=== PATIENT | female | born 1965 ===

== ENCOUNTER 2019-10-31 10:04 | Day surgery (SDC) | payer OTHER ==
[2019-10-29 12:08] LABS: Hematocrit 36.4 % (30.3-42.9); Hemoglobin 12.2 gm/dl (10.1-14.3)
--- NOTE | 2019-10-29 12:18 | Anesthesia Consultation ---
Anesthesia Consult and Med Hx Date of service: 10/29/19 - Airway Anesthetic Teeth Evaluation: Good ROM Head & Neck: Adequate Mental/Hyoid Distance: Adequate Mallampati Class: Class II Intubation Access Assessment: Good - Pre-Operative Health Status ASA Pre-Surgery Classification: ASA2 Proposed Anesthetic Plan: General Nerve Block: TAP PRN - Pulmonary Hx Smoking: No (+2FS (knees limit activity)) Hx Sleep Apnea: No (NENA PRE SCREEN HIGH RISK) - Cardiovascular System Hx Hypertension: Yes (X 5 YRS) - Hematic Hx Anemia: Yes (NOT RECENT) - Other Systems Hx Cancer: No Hx Obesity: Yes
--- NOTE | 2019-10-31 10:03 | Anesthesia Day of Surgery ---
Anesthesia Day of Surgery - Day of Surgery Patient Examined: Yes Patient H&P Reviewed: Yes Patient is NPO: Yes
[~2019-10-31 10:04] MED LIST: ACETAMINOPHEN 500 MG TAB PO NR; HYDROmorphone 1 MG/1 ML INJ IV PRN; LACTATED RINGERS 1,000 ML ONE; MAGNESIUM OXIDE 400 MG TAB PO NR; ONDANSETRON 4 MG/2 ML INJ IV PRN; TRIAMCINOLONE 40 MG/1 ML INJ IM NR; ceFAZolin/Water 2 GM/20 ML 2 GM/20 ML SYRINGE IV SCH; fentaNYL 100 MCG/2 ML INJ IV NR
[2019-10-31] MEDS: MIDAZOLAM 2 MG/2 ML INJ IV NR ×2 (10:30→11:56)
[2019-10-31] MEDS ORDERED: LACTATED RINGERS 1,000 ML IV SCH (11:00)
[2019-10-31] MEDS ORDERED: GABAPENTIN 300 MG CAP PO NR (11:00)
[2019-10-31] MEDS ORDERED: CELECOXIB 200 MG CAP PO NR (11:00)
[2019-10-31] MEDS ORDERED: BUPIVACAINE-EPINEPHRINE/PF 0.25%-1:200,000 (30 ML) VIAL INFILTRATI ONE (11:35)
[2019-10-31] MEDS ORDERED: ROCURONIUM 50 MG/5 ML INJ IV ONE (12:35)
[2019-10-31] MEDS ORDERED: propofoL 200 MG/20 ML VIAL IV ONE (12:35)
[2019-10-31] MEDS ORDERED: HYDROmorphone 1 MG/1 ML INJ ONE ×2 (12:35→15:12)
[2019-10-31] MEDS ORDERED: LIDOCAINE MPF (2%) 20 MG/1 ML VIAL 5 ML ONE (12:35)
[2019-10-31] MEDS ORDERED: WATER FOR IRRIG STERILE 1,500 ML BOTTLE IR ONE (13:28)
[2019-10-31] MEDS ORDERED: SUGAMMADEX SODIUM 200 MG/2 ML VIAL IV ONE (15:15)
--- NOTE | 2019-10-31 15:18 | Short Stay Summary ---
Short Stay Documentation Date of service: 10/31/19 - History Principal diagnosis: incarcerated ventral hernia H&P: obtained from office - Allergies and Medications Current Medications: Allergies No Known Allergies Allergy (Verified 10/17/19 15:52) Home Medications Medication Instructions Recorded Confirmed Last Taken Type amLODIPine [Norvasc] 5 mg PO DAILY 10/17/19 10/31/19 10/31/19 06:30 History hydroCHLOROthiazide [Hctz] 12.5 mg PO QDAY 10/17/19 10/31/19 10/30/19 History Active Medications Acetaminophen (Tylenol) 1,000 mg PO ONCE NR Stop: 10/31/19 23:00 Last Admin: 10/31/19 10:25 Dose: 1,000 mg Documented by: Celecoxib (Celebrex) 400 mg PO PREOP NR Stop: 10/31/19 23:00 Last Admin: 10/31/19 10:25 Dose: 400 mg Documented by: Fentanyl (Sublimaze) 100 mcg IV ONCE NR Stop: 10/31/19 23:00 Last Admin: 10/31/19 11:55 Dose: 100 mcg Documented by: Gabapentin (Gabapentin) 300 mg PO PREOP NR Stop: 10/31/19 23:00 Last Admin: 10/31/19 10:25 Dose: 300 mg Documented by: Hydromorphone HCl (Dilaudid) 0.5 mg IV Q10MIN PRN PRN Reason: Pain , Severe (7-10) Stop: 10/31/19 23:00 Cefazolin Sodium (Ancef/Sterile Water 2 Gm/20 Ml) 2 gm in 20 mls @ 120 mls/hr IV PREOP SARAH BETH Stop: 10/31/19 23:59 Lactated Ringer's (Lactated Ringers) 1,000 mls @ 125 mls/hr IV DIRECT SARAH BETH Last Admin: 10/31/19 10:15 Dose: 125 mls/hr Documented by: Magnesium Oxide (Mag-Ox) 400 mg PO ONCE NR Stop: 10/31/19 23:00 Last Admin: 10/31/19 10:25 Dose: 400 mg Documented by: Midazolam HCl (Versed) 2 mg IV PREOP NR Stop: 10/31/19 23:59 Last Admin: 10/31/19 11:56 Dose: 2 mg Documented by: Ondansetron HCl (Zofran) 4 mg IV ONCE PRN PRN Reason: Nausea And Vomiting Stop: 10/31/19 23:00 Triamcinolone Acetonide (Kenalog-40) 40 mg IM ONCE NR Stop: 10/31/19 23:59 - Brief post op/procedure progress note Date of procedure: 10/31/19 Pre-op diagnosis: incarcerated ventral hernia Post-op diagnosis: same Procedure: robotic lysis of adhesions, repair of ventral hernia with mesh Anesthesia: GETA, other (gina block) Findings: 2 cm supraumbilical ventral hernia containing large amount of preperitoneal fat, smaller adjacent infraumbilical incisional hernia Repaired with bard flat mesh 9cm x 11cm Surgeon: RED GARCIA Credit Verifier: HANH ELIAS Estimated blood loss: minimal Pathology: none Condition: stable - Hospital course Hospital course: Pt observed in PACU and discharged to home in stable condition when criteria met - Disposition Condition at discharge: Good Disposition: DC-01 TO HOME OR SELFCARE Short Stay Discharge Plan Activity: other (no heavy lifting) Diet: regular Wound: per your surgeon's advice Additional Instructions: SEE PRINTED DISCHARGE INSTRUCTIONS Follow up with: RED GARCIA DO [Primary Care Provider] - 14 Days Prescriptions: Ibuprofen [Motrin 800 MG tab] 800 mg PO Q8HR #30 tablet oxyCODONE /ACETAMINOPHEN [Percocet 5/325] 1 tab PO Q4HR PRN #30 tab PRN Reason: Pain , Severe (7-10) Ondansetron [Zofran Odt] 4 mg PO Q8HR PRN #30 tab.rapdis PRN Reason: Nausea And Vomiting
[2019-10-31] MEDS ORDERED: oxyCODONE /ACETAMINOPHEN 5-325MG TAB PO PRN (16:05)
[2019-10-31 16:45] VITALS: BP 127/75
--- NOTE | 2019-10-31 17:22 | Post Anesthesia Evaluation ---
- Post Anesthesia Evaluation Patient Participated: Yes Airway Patent: Yes Stable Respiratory Function: Yes Nausea/Vomiting: No Temp > 96.8F: Yes Pain Manageable: Yes Adequeate Hydration: Yes Anesthesia Complications: No Block Receding Appropriately: Not Applicable Patient on Ventilator: No
--- NOTE | 2019-11-01 07:42 | Operative Report ---
Operative Report Operative Report: Date of procedure: 10/31/19 Pre-op diagnosis: incarcerated ventral hernia Post-op diagnosis: same Procedure: robotic lysis of adhesions, repair of ventral hernia with mesh Anesthesia: GETA, other (gina block) Findings: 2 cm supraumbilical ventral hernia containing large amount of preperitoneal fat, smaller adjacent infraumbilical incisional hernia Repaired with bard flat mesh 9cm x 11cm Surgeon: RED GARCIA Fitness Sales Associate: HAHN ELIAS Estimated blood loss: minimal Pathology: none Condition: stable - Hospital course Hospital course: Pt observed in PACU and discharged to home in stable condition when criteria met HPI and indication: 54-year-old female who was seen in the surgery clinic for evaluation of a ventral hernia. The hernia was found to be nonreducible, chronically incarcerated with fat. It was recommended that the hernia be repaired. All risks, benefits, alternatives to surgery were discussed with the patient and questions answered. Consent was obtained for robotic assisted ventral hernia repair, possible open, possible mesh placement. Preoperative COVID testing was negative. Procedure in detail: The patient was identified in the preoperative area and taken back to the operating room and placed on the operating room table in supine position. After anesthesia was induced, a Pickering catheter was sterilely placed by the circulating nurse and arms tucked with adequate padding. The abdomen was then prepped and draped in usual sterile fashion and a timeout was performed. The abdomen was insufflated via a veress needle in the left upper quadrant. The position of the veress needle was confirmed using the saline drop test. The abdomen was insufflated to 15 mmHg and veress needle removed. A 5 mm incision was made using a 15 blade in the left upper quadrant and a 5 mm Optiview trocar was inserted through this incision. Abdomen was inspected and there was no underlying injury to any of the abdominal contents. There were adhesions from the omentum to the midline abdominal wall. An additional 8 mm robotic trocar was placed in the left lower quadrant and a 12 mm balloon trocar in the left lateral mid abdomen. The 5 mm left upper quadrant trocar was removed and replaced with an 8 mm robotic trocar under direct visualization. The robot was then docked with a fenestrated bipolar grasper in arm #2 and a monopolar scissor in arm 1. The surgeon was then transferred to the console. First, adhesiolysis was performed and omental adhesions to the anterior abdominal wall were taken down using a monopolar scissors. Once all adhesions were taken down, I then proceeded to make a preperitoneal flap. The peritoneum was scored with the monopolar scissors and the preperitoneal space dissected in an avascular plane. A very small infraumbilical hernia was encountered with a small amount of preperitoneal fat which was reduced. The dissection was continued until the larger symptomatic supra umbilical ventral hernia was encountered. There was a large amount of preperitoneal fat incarcerated in the hernia which was carefully reduced. After all of the contents of the hernia was reduced the hernia defect was measured. It measured approximately 2 cm. The intra-abdominal pressure was turned down to 8 mmHg. Both defects were closed with running 0V loc continuous stitch. A 9 cm x 11 cm Bard flat mesh was used to repair the hernia defect and to incorporate coverage for the less than 1 cm infraumbilical defect. The mesh was sutured into place in 4 quadrants using interrupted 2-0 Vicryl suture. The. Peritoneal space was checked for hemost asis which is very carefully ensured. The peritoneum was reapproximated over the mesh using a running 3-0 VLoc continuous suture. A 1-1/2 cm defect in the peritoneum was closed using a figure of eight 3-0 Vicryl suture. All of the mesh was covered by peritoneum and not exposed to the bowel. The robot was then undocked and the surgeon scrubbed back in. All needle and suture material was removed under direct visualization. The 12 mm port fascia was closed using an interrupted 0 Vicryl suture using the Duy Khalil device. The remainder of the ports were removed under direct visualization and the abdomen slowly desufflated. The skin was closed with 4-0 Monocryl subcuticular stitch and skin glue. 10 mg of Kenalog was injected into the dermal layer around each incision as the patient has a history of keloid formation after surgery. An abdominal binder was applied to the patient. At the end of the case, all sponge, instrument, sharp counts were correct x2. The patient was awoken from anesthesia and the Pickernig catheter removed. She was extubated and taken to PACU in stable condition.
== END 2019-10-31 17:25 | disposition home or self-care (01) ==
LOC: OR 10:04
PROVIDERS: ATTEND Surgery
DX: K43.6 Other and unspecified ventral hernia with obstruction, without gangrene (principal); Z11.59 Encounter for screening for other viral diseases; I10 Essential (primary) hypertension; D64.9 Anemia, unspecified; Z90.49 Acquired absence of other specified parts of digestive tract; Z98.51 Tubal ligation status
CPT/HCPCS: 36415; 49653; 64488; 84132; 84703; 85014; 85018; C1781; J0690; J1170; J2250; J2704; J3010; J3301; J7120; S2900; U0003; 64450